=== PATIENT | female | born 2000 | race Caucasian/White ===

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

== ENCOUNTER 2021-02-25 19:27 | Emergency (ER) | payer OTHER ==
[2021-02-25] MEDS ORDERED: PROCHLORPERAZINE 10 MG/2 ML VIAL IVP STA (20:24)
[2021-02-25] MEDS ORDERED: diphenhydrAMINE INJ 50 MG/ML VIAL IVP STA (20:24)
[2021-02-25] MEDS ORDERED: SODIUM CHLORIDE 0.9% 1,000 ML IV STA (20:24)
--- NOTE | 2021-02-25 20:31 | ED Physician Documentation ---
History of Present Illness - Stated complaint Stated Complaint: NAUSEA,MIGRAINE,CONFUSION - Chief complaint Chief Complaint: Neuro - Additonal information Additional information: 20-year-old female presents the emergency department for evaluation of headache, dizziness and feeling weak. She reports a migraine headache 2 days ago that was the worst headache she ever had. She took some ibuprofen and went to sleep and woke up. When she woke up the headache had mostly gone away but since then she has been feeling somewhat dizzy and fatigued. Some nausea no vomiting. She does report that when she had the headache 2 days ago she began to have for very brief period of loss of vision in the left lateral field for about 5 seconds before it returned. No vision changes at this time.No history of similar. no fevers, no falls, no trauma. 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 : None HEENT: None Psych: None Musculoskeletal: None Derm: None - Past Surgical History Past Surgical History: No - Allergies Allergies/Adverse Reactions: Allergies Allergy/AdvReac Type Severity Reaction Status Date / Time No Known Drug Allergies Allergy Verified 07/29/18 06:47 - Social History Does the pt smoke?: No Smoking Status: Never smoker Does the pt drink ETOH?: No Does the pt have substance abuse?: No - Immunizations Immunizations are current?: Yes - POLST Patient has POLST: No PD ED PE NORMAL - General General: Alert and oriented X 3, No acute distress, Well developed/nourished - HEENT HEENT: Atraumatic, Moist mucous membranes, Pharynx benign - Neck Neck: Supple, no meningeal sign, No adenopathy - Cardiac Cardiac: RRR, No murmur, No gallop - Respiratory Respiratory: No respiratory distress, Clear bilaterally - Abdomen Abdomen: Normal bowel sounds, Soft - Back Back: No CVA TTP, No spinal TTP - Derm Derm: Normal color, Warm and dry, No rash - Extremities Extremities: No deformity, No tenderness to palpate, Normal ROM s pain - Neuro Neuro: Alert and oriented X 3, 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 Eye Opening: Spontaneous Motor: Obeys Commands Verbal: Oriented GCS Score: 15 Results - Vitals Vitals: Vital Signs - 24 hr 02/25/21 19:43 Temperature 37.1 C Heart Rate 64 Respiratory 18 Rate Blood Pressure 123/74 O2 Saturation 100 Oxygen O2 Source Room air - Labs Labs: Laboratory Tests 02/25/21 02/25/21 20:50 20:50 Urine Color YELLOW Urine Clarity HAZY Urine pH 5.0 Ur Specific [place] >=1.030 H Urine Protein 100 H Urine Glucose (UA) NEGATIVE Urine Ketones TRACE Urine Occult Blood NEGATIVE Urine Nitrite NEGATIVE Urine Bilirubin NEGATIVE Urine Urobilinogen 0.2 (NORMAL) Ur Leukocyte Esterase NEGATIVE Urine RBC 0-5 Urine WBC 0-3 Ur Squamous Epith Cells MOD Squamous H Urine Bacteria Few Urine Mucus Moderate Strands Ur Microscopic Review INDICATED Urine Culture Comments NOT INDICATED Urine HCG, Qual NEGATIVE PD MEDICAL DECISION MAKING - ED course Complexity details: reviewed results, d/w patient ED course: Well-appearing 20-year-old female presents to the emergency department for evaluation of a headache that began 3 days ago. She describes it is a migraine but it was worse than typical. She did take some ibuprofen which improve the headache and she went to sleep when she woke up the next a.m. she still continued to have residual headache and some dizziness. Patient has an unremarkable neuro exam with no focal findings and normal cerebellar exam. Patient was given a liter of IV fluids Compazine and Benadryl here in the ER with full resolution of her symptoms. Emergent return precautions were discussed Departure - Departure Disposition: 01 Home, Self Care Clinical Impression: Headache Qualifiers: Headache type: other headache syndrome Qualified Code(s): G44.89 - Other headache syndrome Condition: Stable Record reviewed to determine appropriate education?: Yes Instructions: ED Headache Migraine Comments: Gen I am glad that you are feeling better. If at any point you feel that your headache is worsening, you develop fevers, uncontrolled vomiting please return immediately to the ER for a second look. Please drink plenty of fluids at home and get lots of rest. I expect that when you wake up in the morning your headache is fully gone.
[2021-02-25 21:04] LABS: BILIRUBIN,URINE NEGATIVE (NEGATIVE); GLUCOSE, URINE (UA) NEGATIVE (NEGATIVE); KETONES,URINE (UA) TRACE mg/dL (NEGATIVE); LEUKOCYTE ESTERASE, URINE NEGATIVE (NEGATIVE); NITRITE,URINE NEGATIVE (NEGATIVE); OCCULT BLOOD,URINE NEGATIVE (NEGATIVE); PROTEIN,URINE 100 mg/dL (NEGATIVE); UROBILINOGEN,URINE 0.2 (NORMAL) E.U./dL (NORMAL)
[2021-02-25 21:10] LABS: CLARITY,URINE HAZY (CLEAR); HCG UR QUAL NEGATIVE
[2021-02-25 21:17] LABS: BACTERIA,URINE Few /HPF (None Seen); RBC,URINE 0-5 /HPF (0-5); SQUAMOUS EPITHELIAL CELL,UR MOD Squamous (<= Few); WBC,URINE 0-3 /HPF (0-5)
[2021-02-25 21:18] LABS: MUCUS,URINE Moderate Strands
[2021-02-25 22:11] VITALS: BP 117/66
== END 2021-02-25 22:11 | disposition home or self-care (01) ==
LOC: ED 19:27
DX: G44.89 Other headache syndrome (principal)
CPT/HCPCS: 81001; 81025; 96374; 99283; 99284; J1200; 81003; 87086

== ENCOUNTER 2021-03-18 01:23 | Emergency (ER) | payer OTHER ==
[2021-03-18 01:57] LABS: HCG UR QUAL NEGATIVE
--- NOTE | 2021-03-18 02:11 | ED Physician Documentation ---
History of Present Illness - Stated complaint Stated Complaint: SHAKY - Chief complaint Chief Complaint: General - History obtained from History obtained from: Patient - Additonal information Additional information: 20-year-old woman, previously healthy presents with episode about 20 minutes prior to arrival of legs shaking, head warmth, nausea, and lightheadedness. 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 As she was seeing goodbye to them, she experienced this episode which frightened her, prompting friends to bring her to the emergency department. On the way to the hospital, patient states that her throat felt tight and she had trouble getting a deep breath, but it resolved on the way over. Her symptoms have resolved for the most part upon arrival. she does state she did not drink much water at work today since it has been extremely busy. Review of Systems Ten Systems: 10 systems reviewed and negative Constitutional: reports: Fatigue. denies: Fever, Chills Cardiac: denies: Chest pain / pressure Respiratory: reports: Dyspnea. denies: Cough GI: reports: Nausea. denies: Abdominal Pain, Vomiting Skin: denies: Rash Musculoskeletal: denies: Neck pain, Back pain Neurologic: reports: Generalized weakness, Other (dizziness). 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 HEENT: None Psych: None Musculoskeletal: None Derm: None - Past Surgical History Past Surgical History: No - Present Medications Home Medications: Ambulatory Orders Medication Instructions Recorded Confirmed No Known Home Medications 03/18/21 03/18/21 - Allergies Allergies/Adverse Reactions: Allergies Allergy/AdvReac Type Severity Reaction Status Date / Time No Known Drug Allergies Allergy Verified 03/18/21 01:31 - Social History Does the pt smoke?: No Smoking Status: Never smoker Does the pt drink ETOH?: No Does the pt have substance abuse?: No - Immunizations Immunizations are current?: Yes - POLST Patient has POLST: No PD ED PE NORMAL - Vitals Vital signs reviewed: Yes - General General: Alert and oriented X 3, No acute distress, Well developed/nourished - HEENT HEENT: Atraumatic, PERRL, EOMI, Moist mucous membranes - Neck Neck: Supple, no meningeal sign - Cardiac Cardiac: RRR - Respiratory Respiratory: No respiratory distress, Clear bilaterally - Abdomen Abdomen: Non tender, Non distended - Derm Derm: Normal color, Warm and dry - Extremities Extremities: No deformity - Neuro Neuro: Alert and oriented X 3 - Psych Psych: Normal mood, Normal affect Results - Vitals Vitals: Vital Signs - 24 hr 03/18/21 03/18/21 03/18/21 01:28 01:33 02:40 Temperature 36.8 C Heart Rate 96 107 H Heart Rate [ 107 H Standing] Heart Rate [ 88 Supine] Respiratory 16 16 Rate Blood Pressure 119/63 117/81 H Blood Pressure 117/81 H [Standing] Blood Pressure 118/58 L [Supine] O2 Saturation 100 99 Oxygen O2 Source Room air - EKG (time done) 0142 Rate: Rate (enter#) (82) Rhythm: NSR [place]: Normal Intervals: Normal [place] QRS: Normal Ischemia: Normal ST segments - Labs Labs: Laboratory Tests 03/18/21 03/18/21 01:42 01:43 POC Whole Bld Glucose 109 H Urine HCG, Qual NEGATIVE PD MEDICAL DECISION MAKING - ED course ED course: 20-year-old woman presents with lightheadedness episode outside of the emergency department with improvement in symptoms here. Her EKG, glucose, hcg, vital signs, physical exam are unremarkable with exception of mild orthostatic tachycardia upon standing. Patient asked if she should have lab work done and I did offer it, but after discussing the timeframe she is saying that she would like to monitor her symptoms and will follow-up with her primary doctor. Strict return precautions given. Departure - Departure Disposition: 01 Home, Self Care Clinical Impression: Marijuana use, Shakiness, Nausea, Lightheaded Condition: Good Instructions: ED Near Syncope Vasovagal Comments: You are seen in the emergency department for evaluation of shakiness, lightheadedness, and nausea. Your EKG, blood sugar, and vital signs were normal, as was your physical exam. Your test was negative. You need to get 8-9 hours of sleep daily this week, Drink 8 to 10 glasses of water daily, and get some rest tomorrow. Return to the emergency department if you have any new or worsening symptoms or concerns. Forms: Activity restrictions Discharge Date/Time: 03/18/21 02:40
[2021-03-18 02:43] VITALS: BP 117/81
== END 2021-03-18 02:40 | disposition home or self-care (01) ==
LOC: ED 01:23
DX: R42 Dizziness and giddiness (principal); R11.0 Nausea
CPT/HCPCS: 81025; 93005; 99282; 99283